=== PATIENT | male | born 1975 | race Caucasian/White ===

== ENCOUNTER → 2020-12-07 | Outpatient (CLI) | payer BC | LOC: HEART 5 13:48 | DX: R06.02 Shortness of breath (principal) | CPT/HCPCS: 94010 ==

== ENCOUNTER → 2022-02-08 | Outpatient (CLI) | payer BC | LOC: RAD 15:43 | DX: M54.6 Pain in thoracic spine (principal); M47.814 Spondylosis without myelopathy or radiculopathy, thoracic region | CPT/HCPCS: 72070 ==

== ENCOUNTER → 2022-03-21 | Day surgery (SDC) | payer BC ==
[~2022-03-21] MED LIST: AMBIEN CR12.5 MG PO; ATORVASTATIN CA10 MG PO; MELOXICAM7.5 MG PO; METAXALONE800 MG PO; METROCREAM 0.7545 GM EXT; PROTOPIC60 GM TP; SOOLANTRA45 GM TP; TESTOSTERO200 MG/1 M IM; VIAGRA100 MG PO; VORT20TA PO; WELLBUTRIN XL300 MG PO
== END | disposition home or self-care (01) ==
LOC: OR 06:22
DX: D12.5 Benign neoplasm of sigmoid colon (principal); K62.5 Hemorrhage of anus and rectum; K64.4 Residual hemorrhoidal skin tags; N40.0 Benign prostatic hyperplasia without lower urinary tract symptoms; K57.30 Diverticulosis of large intestine without perforation or abscess without bleeding; I10 Essential (primary) hypertension; E78.5 Hyperlipidemia, unspecified; E66.01 Morbid (severe) obesity due to excess calories; Z88.1 Allergy status to other antibiotic agents; Z91.030 Bee allergy status; Z79.899 Other long term (current) drug therapy; Z68.41 Body mass index [BMI] 40.0-44.9, adult
CPT/HCPCS: J2704